=== PATIENT | male | born 1935 | race Caucasian/White ===

== ENCOUNTER 2023-06-13 15:32 | Emergency (ER) | payer MEDICARE ==
[2023-06-13 15:45] VITALS: PULSE 57
[2023-06-13 16:03] LABS: BASOPHILS PERCENT AUTO 0.4 % (0.3-3.8); EOSINOPHILS ABSOLUTE AUTO 0.1 x10-3/uL (0.0-0.6); EOSINOPHILS PERCENT AUTO 0.8 % (0.1-6.8); HEMATOCRIT 30.4 % (38.3-50.1); HEMOGLOBIN 10.2 g/dL (12.9-17.7); LYMPHOCYTES ABSOLUTE AUTO 1.5 x10-3/uL (0.5-4.5); LYMPHOCYTES PERCENT AUTO 14.7 % (15.8-45.3); MEAN CORPUSCULAR HEMOGLOBIN 34.6 pg (27.0-33.3); MEAN CORPUSCULAR HGB CONC 33.5 g/dL (28.7-35.3); MEAN CORPUSCULAR VOLUME 103.3 fL (80.8-98.7); MEAN PLATELET VOLUME 9.1 fL (6.7-11.0); MONOCYTES ABSOLUTE AUTO 0.9 x10-3/uL (0.0-1.2); NEUTROPHILS ABSOLUTE AUTO 7.8 x10-3/uL (1.7-6.9); NEUTROPHILS PERCENT AUTO 75.1 % (40.3-71.8); PLATELET COUNT,PLT 197 x10(3)uL (117-477); WHITE BLOOD CELL COUNT,WBC 10.3 x10-3/uL (3.2-10.1)
[2023-06-13 16:06] LABS: BLOOD UREA NITROGEN,BUN 52 mg/dL (7-18); BUN/CREATININE RATIO 34.7 (9-20); CALCIUM 9.3 mg/dL (8.6-10.2); CARBON DIOXIDE,CO2 26 mmol/L (21-32); CHLORIDE,CL 106 mmol/L (100-110); CREATININE 1.5 mg/dL (0.70-1.30); ESTIMATED GFR 45 mL/min (>60); GLUCOSE RANDOM 114 mg/dL (80-116); POTASSIUM,K 4.5 mmol/L (3.5-5.3); SODIUM,NA 139 mmol/L (135-145)
[2023-06-13 16:11] LABS: A/G RATIO 1.1; ALANINE AMINOTRANSFERASE,ALT 19 U/L (12-36); ALBUMIN 3.3 g/dL (3.2-4.6); ALKALINE PHOSPHATASE 94 IU/L (56-112); ASPARTATE AMNIOTRANSFERASE,AST 15 IU/L (5-25); BILIRUBIN TOTAL 0.6 mg/dL (0.1-1.3); PROTEIN TOTAL,TP 6.2 g/dL (6.0-8.0)
[2023-06-13 16:13] LABS: RED BLOOD CELL COUNT 2.95 x10(6)uL (3.90-5.90)
[2023-06-13 16:22] LABS: C-REACTIVE PROTEIN < 0.50 mg/dL (<0.50); PRO B-TYPE NATRIUR PEPT,BNPPRO 1907 pg/mL (<=450)
[2023-06-13 17:13] LABS: BILIRUBIN,URINE NEGATIVE (NEGATIVE); GLUCOSE,URINE NORMAL (NORMAL); KETONES,URINE NEGATIVE (NEGATIVE); LEUKOCYTE ESTERASE,URINE LARGE (NEGATIVE); NITRITE,URINE NEGATIVE (NEGATIVE); OCCULT BLOOD,URINE LARGE (NEGATIVE); PROTEIN,URINE 30 mg/dL (NEGATIVE); UROBILINOGEN,URINE NORMAL (NEGATIVE)
[2023-06-13 17:14] LABS: APPEARANCE,URINE CLOUDY (CLEAR); COLOR,URINE YELLOW (YELLOW); RBC,URINE PACKED (0-5); WBC,URINE PACKED (0-5)
[2023-06-13 17:18] VITALS: BP 86/40
[2023-06-13] MEDS: Sodium Chloride 0.9% 1,000 ML IV ONE ×2 (18:05→18:41)
[2023-06-13] MEDS: cefTRIAXone 1 GM in Sodium Chloride 0.9% 50 ML IV ONE (18:16)
== END 2023-06-13 19:17 ==
LOC: FB.ED 15:32
DX: S20.212A Contusion of left front wall of thorax, initial encounter (principal); S40.022A Contusion of left upper arm, initial encounter; S80.212A Abrasion, left knee, initial encounter; I95.9 Hypotension, unspecified; N39.0 Urinary tract infection, site not specified; I48.20 Chronic atrial fibrillation, unspecified; R60.0 Localized edema; N17.8 Other acute kidney failure; D53.9 Nutritional anemia, unspecified; I13.0 Hypertensive heart and chronic kidney disease with heart failure and stage 1 through stage 4 chronic kidney disease, or unspecified chronic kidney disease; I50.30 Unspecified diastolic (congestive) heart failure; N18.30 Chronic kidney disease, stage 3 unspecified; E11.22 Type 2 diabetes mellitus with diabetic chronic kidney disease; K21.9 Gastro-esophageal reflux disease without esophagitis; Z79.01 Long term (current) use of anticoagulants; Z79.899 Other long term (current) drug therapy; W10.9XXA Fall (on) (from) unspecified stairs and steps, initial encounter
CPT/HCPCS: 71101-LT; 80053; 81001; 83880; 84484; 85025; 86140; 87086; 87088; 87186; 93010; 96361; 96374; 99285; 99285-25; J0696; J3490; J7030

== ENCOUNTER 2023-06-19 12:10 | Inpatient (IN) | payer MEDICARE ==
[2023-06-19 13:20] LABS: HEMATOCRIT 29.1 % (38.3-50.1); HEMOGLOBIN 9.8 g/dL (12.9-17.7); MEAN CORPUSCULAR HEMOGLOBIN 34.2 pg (27.0-33.3); MEAN CORPUSCULAR HGB CONC 33.6 g/dL (28.7-35.3); MEAN PLATELET VOLUME 7.7 fL (6.7-11.0); PLATELET COUNT,PLT 233 x10(3)uL (117-477); RED BLOOD CELL COUNT 2.85 x10(6)uL (3.90-5.90); RED CELL DISTRIBUTION WIDTH 16.2 % (12.4-15.0); WHITE BLOOD CELL COUNT,WBC 15.1 x10-3/uL (3.2-10.1)
[2023-06-19 13:24] LABS: BLOOD UREA NITROGEN,BUN 20 mg/dL (7-18); CALCIUM 9.3 mg/dL (8.6-10.2); CARBON DIOXIDE,CO2 27 mmol/L (21-32); CHLORIDE,CL 101 mmol/L (100-110); ESTIMATED GFR 73 mL/min (>60); GLUCOSE RANDOM 123 mg/dL (80-116); POTASSIUM,K 4.3 mmol/L (3.5-5.3); SODIUM,NA 136 mmol/L (135-145)
[2023-06-19 13:30] LABS: A/G RATIO 0.9; ALANINE AMINOTRANSFERASE,ALT 12 U/L (12-36); ALBUMIN 2.8 g/dL (3.2-4.6); ALKALINE PHOSPHATASE 81 IU/L (56-112); ASPARTATE AMNIOTRANSFERASE,AST 9 IU/L (5-25); BILIRUBIN TOTAL 1.1 mg/dL (0.1-1.3); PROTEIN TOTAL,TP 6.1 g/dL (6.0-8.0)
[2023-06-19 13:33] LABS: LYMPHOCYTES PERCENT MAN 6 % (13-37); MONOCYTES PERCENT MAN 10 % (4-12); SEG NEUTROPHILS PERCENT MAN 84 % (46-82)
[2023-06-19] MEDS: Sodium Chloride 0.9% 1,000 ML IV SCH (13:46)
[2023-06-19] MEDS: VANCOmycin 2 GM/400 ML 2 GM in Premix Bag 1 BAG IV ONE (14:50)
[2023-06-19] MEDS: Acetaminophen 500 MG Tab PO ONE (15:00)
[2023-06-19] MEDS: Morphine 2 MG/ML SYRINGE IVPUSH ONE (15:00)
[2023-06-19] MEDS: cefTRIAXone 1 GM Vial IVPUSH SCH (15:46)
[2023-06-19] MEDS ORDERED: Ondansetron 4 MG Tab.DIS PO PRN (16:14)
[2023-06-19 16:23] LABS: BILIRUBIN,URINE NEGATIVE (NEGATIVE); GLUCOSE,URINE NORMAL (NORMAL); KETONES,URINE 15 mg/dL (NEGATIVE); LEUKOCYTE ESTERASE,URINE MODERATE (NEGATIVE); NITRITE,URINE NEGATIVE (NEGATIVE); OCCULT BLOOD,URINE NEGATIVE (NEGATIVE); PROTEIN,URINE NEGATIVE (NEGATIVE); UROBILINOGEN,URINE NORMAL (NEGATIVE)
[2023-06-19 16:28] LABS: APPEARANCE,URINE SLIGHTLY CLOUDY (CLEAR); BACTERIA,URINE FEW (NS); COLOR,URINE YELLOW (YELLOW); SQUAMOUS EPITHELIAL CELLS,UR OCCASIONAL (NS,R,O)
[2023-06-19] MEDS: Potassium Chloride 20 MEQ Tab.ER PO SCH (18:51)
[2023-06-19] MEDS: Apixaban 5 MG Tab PO SCH (20:09)
[2023-06-19] MEDS: Simvastatin 20 MG Tab PO SCH (20:09)
[2023-06-19] MEDS: Acetaminophen 325 MG Tab PO PRN (20:12)
[2023-06-19] MEDS ORDERED: Gabapentin 100 MG Cap PO SCH (21:00)
[2023-06-20 06:31] LABS: HEMATOCRIT 26.5 % (38.3-50.1); HEMOGLOBIN 8.8 g/dL (12.9-17.7); MEAN CORPUSCULAR HEMOGLOBIN 33.8 pg (27.0-33.3); MEAN CORPUSCULAR HGB CONC 33.2 g/dL (28.7-35.3); MEAN CORPUSCULAR VOLUME 101.8 fL (80.8-98.7); MEAN PLATELET VOLUME 7.9 fL (6.7-11.0); PLATELET COUNT,PLT 222 x10(3)uL (117-477); RED BLOOD CELL COUNT 2.61 x10(6)uL (3.90-5.90); WHITE BLOOD CELL COUNT,WBC 14.3 x10-3/uL (3.2-10.1)
[2023-06-20 06:42] LABS: A/G RATIO 0.7; ALANINE AMINOTRANSFERASE,ALT 11 U/L (12-36); ALBUMIN 2.3 g/dL (3.2-4.6); ALKALINE PHOSPHATASE 76 IU/L (56-112); ASPARTATE AMNIOTRANSFERASE,AST 10 IU/L (5-25); BILIRUBIN TOTAL 0.8 mg/dL (0.1-1.3); BLOOD UREA NITROGEN,BUN 21 mg/dL (7-18); CALCIUM 8.7 mg/dL (8.6-10.2); CARBON DIOXIDE,CO2 25 mmol/L (21-32); CHLORIDE,CL 103 mmol/L (100-110); EST CRCL DRUG DOSING (CG) 48.66 mL/min; ESTIMATED GFR 73 mL/min (>60); GLUCOSE RANDOM 124 mg/dL (80-116); POTASSIUM,K 4.2 mmol/L (3.5-5.3); PROTEIN TOTAL,TP 5.5 g/dL (6.0-8.0); SODIUM,NA 136 mmol/L (135-145)
[2023-06-20 06:53] LABS: EOSINOPHILS PERCENT MAN 1 % (0-5); LYMPHOCYTES PERCENT MAN 8 % (13-37); MONOCYTES PERCENT MAN 7 % (4-12); SEG NEUTROPHILS PERCENT MAN 84 % (46-82)
[2023-06-20 06:55] LABS: ANISOCYTOSIS FEW
[2023-06-20 06:56] LABS: HYPERSEGMENTED NEUTROPHILS FEW
[2023-06-20] MEDS: Furosemide 20 MG Tab PO SCH (08:47)
[2023-06-20] MEDS: Allopurinol 300 MG Tab PO SCH (08:47)
[2023-06-20] MEDS ORDERED: Tamsulosin 0.4 MG Cap.ER PO SCH (09:00)
[2023-06-20] MEDS ORDERED: Metoprolol Succinate 50 MG Tab.ER PO SCH (09:00)
[2023-06-20] MEDS: Metoprolol Succinate 25 MG Tab.ER PO SCH (10:17)
[2023-06-20] MEDS: Finasteride 5 MG Tab PO SCH (10:17)
[2023-06-20] MEDS: Tamsulosin 0.4 MG Cap.ER PO SCH (10:17)
[2023-06-20] MEDS: VANCOmycin 1.5 GM/300 ML 1.5 GM in Premix Bag 1 BAG IV SCH (16:03)
[2023-06-21 06:38] LABS: BASOPHILS ABSOLUTE AUTO 0.1 x10-3/uL (0.0-0.3); BASOPHILS PERCENT AUTO 0.8 % (0.3-3.8); EOSINOPHILS ABSOLUTE AUTO 0.1 x10-3/uL (0.0-0.6); EOSINOPHILS PERCENT AUTO 0.7 % (0.1-6.8); HEMATOCRIT 25.6 % (38.3-50.1); HEMOGLOBIN 8.8 g/dL (12.9-17.7); LYMPHOCYTES ABSOLUTE AUTO 1.1 x10-3/uL (0.5-4.5); LYMPHOCYTES PERCENT AUTO 7.4 % (15.8-45.3); MEAN CORPUSCULAR HEMOGLOBIN 34.9 pg (27.0-33.3); MEAN CORPUSCULAR HGB CONC 34.3 g/dL (28.7-35.3); MEAN CORPUSCULAR VOLUME 101.8 fL (80.8-98.7); MEAN PLATELET VOLUME 7.9 fL (6.7-11.0); MONOCYTES PERCENT AUTO 6.6 % (5.5-15.2); NEUTROPHILS ABSOLUTE AUTO 12.2 x10-3/uL (1.7-6.9); NEUTROPHILS PERCENT AUTO 84.5 % (40.3-71.8); PLATELET COUNT,PLT 229 x10(3)uL (117-477); RED BLOOD CELL COUNT 2.52 x10(6)uL (3.90-5.90); RED CELL DISTRIBUTION WIDTH 15.8 % (12.4-15.0); WHITE BLOOD CELL COUNT,WBC 14.4 x10-3/uL (3.2-10.1)
[2023-06-21 06:58] LABS: A/G RATIO 0.7; ALANINE AMINOTRANSFERASE,ALT 18 U/L (12-36); ALBUMIN 2.2 g/dL (3.2-4.6); ALKALINE PHOSPHATASE 85 IU/L (56-112); ASPARTATE AMNIOTRANSFERASE,AST 16 IU/L (5-25); BILIRUBIN TOTAL 0.7 mg/dL (0.1-1.3); BLOOD UREA NITROGEN,BUN 21 mg/dL (7-18); CALCIUM 8.8 mg/dL (8.6-10.2); CARBON DIOXIDE,CO2 23 mmol/L (21-32); CHLORIDE,CL 101 mmol/L (100-110); EST CRCL DRUG DOSING (CG) 48.66 mL/min; ESTIMATED GFR 73 mL/min (>60); GLUCOSE RANDOM 108 mg/dL (80-116); PROTEIN TOTAL,TP 5.5 g/dL (6.0-8.0); SODIUM,NA 131 mmol/L (135-145)
[2023-06-21] MEDS ORDERED: Metolazone 5 MG Tab PO SCH (09:00)
[2023-06-21] MEDS: Polyethylene Glycol 3350 Powder 17 GM Packet PO PRN (10:47)
[2023-06-22] MEDS: LORazepam 2 MG/ML SDV IVPUSH ONE (00:07)
[2023-06-22] MEDS: OLANZapine 10 MG Vial IM ONE (00:24)
[2023-06-22 06:41] LABS: BASOPHILS PERCENT AUTO 0.3 % (0.3-3.8); EOSINOPHILS ABSOLUTE AUTO 0.1 x10-3/uL (0.0-0.6); EOSINOPHILS PERCENT AUTO 0.9 % (0.1-6.8); HEMATOCRIT 26.2 % (38.3-50.1); LYMPHOCYTES PERCENT AUTO 8.7 % (15.8-45.3); MEAN CORPUSCULAR HEMOGLOBIN 34.3 pg (27.0-33.3); MEAN CORPUSCULAR HGB CONC 34.1 g/dL (28.7-35.3); MEAN CORPUSCULAR VOLUME 100.7 fL (80.8-98.7); MEAN PLATELET VOLUME 7.7 fL (6.7-11.0); MONOCYTES ABSOLUTE AUTO 0.9 x10-3/uL (0.0-1.2); MONOCYTES PERCENT AUTO 7.8 % (5.5-15.2); NEUTROPHILS ABSOLUTE AUTO 9.5 x10-3/uL (1.7-6.9); NEUTROPHILS PERCENT AUTO 82.3 % (40.3-71.8); PLATELET COUNT,PLT 282 x10(3)uL (117-477); RED BLOOD CELL COUNT 2.61 x10(6)uL (3.90-5.90); RED CELL DISTRIBUTION WIDTH 15.7 % (12.4-15.0); WHITE BLOOD CELL COUNT,WBC 11.6 x10-3/uL (3.2-10.1)
[2023-06-22 06:49] LABS: A/G RATIO 0.7; ALANINE AMINOTRANSFERASE,ALT 21 U/L (12-36); ALBUMIN 2.3 g/dL (3.2-4.6); ALKALINE PHOSPHATASE 94 IU/L (56-112); ASPARTATE AMNIOTRANSFERASE,AST 16 IU/L (5-25); BILIRUBIN TOTAL 0.8 mg/dL (0.1-1.3); BLOOD UREA NITROGEN,BUN 19 mg/dL (7-18); BUN/CREATININE RATIO 21.1 (9-20); CALCIUM 9.2 mg/dL (8.6-10.2); CARBON DIOXIDE,CO2 27 mmol/L (21-32); CHLORIDE,CL 101 mmol/L (100-110); CREATININE 0.9 mg/dL (0.70-1.30); EST CRCL DRUG DOSING (CG) 54.06 mL/min; ESTIMATED GFR 83 mL/min (>60); GLUCOSE RANDOM 116 mg/dL (80-116); POTASSIUM,K 4.3 mmol/L (3.5-5.3); PROTEIN TOTAL,TP 5.8 g/dL (6.0-8.0); SODIUM,NA 136 mmol/L (135-145)
[2023-06-22 07:02] LABS: C-REACTIVE PROTEIN 22.42 mg/dL (<0.50)
[2023-06-22] MEDS ORDERED: Haloperidol Lactate 5 MG/ML SDV IM PRN (09:42)
[2023-06-22 11:02] LABS: BASE EXCESS ARTERIAL,POC -1 mmol/L (-2 - 3+); HCO3 ARTERIAL,POC 22 mmol/L (21-28); PO2 ARTERIAL,POC 84 mmHg (83-108)
[2023-06-22] MEDS: Acetaminophen/HYDROcodone 325-5 MG Tab PO PRN (16:05)
[2023-06-22] MEDS: Melatonin 3 MG Tab PO SCH (21:02)
[2023-06-23 07:01] LABS: BASOPHILS ABSOLUTE AUTO 0.1 x10-3/uL (0.0-0.3); BASOPHILS PERCENT AUTO 0.5 % (0.3-3.8); EOSINOPHILS ABSOLUTE AUTO 0.2 x10-3/uL (0.0-0.6); EOSINOPHILS PERCENT AUTO 1.9 % (0.1-6.8); HEMATOCRIT 25.6 % (38.3-50.1); HEMOGLOBIN 8.7 g/dL (12.9-17.7); LYMPHOCYTES ABSOLUTE AUTO 1.1 x10-3/uL (0.5-4.5); MEAN CORPUSCULAR HEMOGLOBIN 34.3 pg (27.0-33.3); MEAN CORPUSCULAR HGB CONC 34.2 g/dL (28.7-35.3); MEAN CORPUSCULAR VOLUME 100.5 fL (80.8-98.7); MEAN PLATELET VOLUME 7.1 fL (6.7-11.0); MONOCYTES ABSOLUTE AUTO 0.8 x10-3/uL (0.0-1.2); MONOCYTES PERCENT AUTO 7.6 % (5.5-15.2); NEUTROPHILS ABSOLUTE AUTO 7.9 x10-3/uL (1.7-6.9); PLATELET COUNT,PLT 276 x10(3)uL (117-477); RED BLOOD CELL COUNT 2.54 x10(6)uL (3.90-5.90); RED CELL DISTRIBUTION WIDTH 15.9 % (12.4-15.0)
[2023-06-23 07:05] LABS: A/G RATIO 0.6; ALANINE AMINOTRANSFERASE,ALT 22 U/L (12-36); ALBUMIN 2.1 g/dL (3.2-4.6); ALKALINE PHOSPHATASE 96 IU/L (56-112); ASPARTATE AMNIOTRANSFERASE,AST 20 IU/L (5-25); BILIRUBIN TOTAL 0.8 mg/dL (0.1-1.3); BLOOD UREA NITROGEN,BUN 22 mg/dL (7-18); BUN/CREATININE RATIO 24.4 (9-20); CALCIUM 8.9 mg/dL (8.6-10.2); CARBON DIOXIDE,CO2 25 mmol/L (21-32); CHLORIDE,CL 104 mmol/L (100-110); CREATININE 0.9 mg/dL (0.70-1.30); EST CRCL DRUG DOSING (CG) 54.06 mL/min; ESTIMATED GFR 83 mL/min (>60); GLUCOSE RANDOM 117 mg/dL (80-116); POTASSIUM,K 4.5 mmol/L (3.5-5.3); PROTEIN TOTAL,TP 5.4 g/dL (6.0-8.0); SODIUM,NA 137 mmol/L (135-145)
[2023-06-23 07:18] LABS: C-REACTIVE PROTEIN 16.76 mg/dL (<0.50)
[2023-06-23] MEDS: Metolazone 2.5 MG Tab PO ONE (10:04)
[2023-06-23] MEDS: Melatonin 3 MG Tab PO SCH (20:14)
[2023-06-23] MEDS: Acetaminophen 325 MG Tab PO SCH (20:15)
[2023-06-24 06:31] LABS: BASOPHILS ABSOLUTE AUTO 0.1 x10-3/uL (0.0-0.3); BASOPHILS PERCENT AUTO 1.3 % (0.3-3.8); EOSINOPHILS ABSOLUTE AUTO 0.2 x10-3/uL (0.0-0.6); HEMOGLOBIN 8.8 g/dL (12.9-17.7); LYMPHOCYTES ABSOLUTE AUTO 1.2 x10-3/uL (0.5-4.5); LYMPHOCYTES PERCENT AUTO 11.7 % (15.8-45.3); MEAN CORPUSCULAR HEMOGLOBIN 34.2 pg (27.0-33.3); MEAN CORPUSCULAR HGB CONC 33.9 g/dL (28.7-35.3); MEAN PLATELET VOLUME 7.1 fL (6.7-11.0); MONOCYTES ABSOLUTE AUTO 0.7 x10-3/uL (0.0-1.2); MONOCYTES PERCENT AUTO 6.9 % (5.5-15.2); NEUTROPHILS ABSOLUTE AUTO 8.1 x10-3/uL (1.7-6.9); NEUTROPHILS PERCENT AUTO 78.1 % (40.3-71.8); PLATELET COUNT,PLT 307 x10(3)uL (117-477); RED BLOOD CELL COUNT 2.57 x10(6)uL (3.90-5.90); WHITE BLOOD CELL COUNT,WBC 10.4 x10-3/uL (3.2-10.1)
[2023-06-24 06:40] LABS: A/G RATIO 0.6; ALANINE AMINOTRANSFERASE,ALT 21 U/L (12-36); ALKALINE PHOSPHATASE 101 IU/L (56-112); ASPARTATE AMNIOTRANSFERASE,AST 14 IU/L (5-25); BILIRUBIN TOTAL 0.4 mg/dL (0.1-1.3); BLOOD UREA NITROGEN,BUN 23 mg/dL (7-18); BUN/CREATININE RATIO 25.6 (9-20); CALCIUM 9.1 mg/dL (8.6-10.2); CARBON DIOXIDE,CO2 26 mmol/L (21-32); CHLORIDE,CL 102 mmol/L (100-110); CREATININE 0.9 mg/dL (0.70-1.30); EST CRCL DRUG DOSING (CG) 54.06 mL/min; ESTIMATED GFR 83 mL/min (>60); GLUCOSE RANDOM 116 mg/dL (80-116); POTASSIUM,K 4.1 mmol/L (3.5-5.3); PROTEIN TOTAL,TP 5.3 g/dL (6.0-8.0); SODIUM,NA 136 mmol/L (135-145)
[2023-06-24 06:47] LABS: C-REACTIVE PROTEIN 11.56 mg/dL (<0.50)
[2023-06-24] MEDS ORDERED: Sennosides/Docusate Sodium 50-8.6 MG Tab PO PRN (09:18)
[2023-06-24] MEDS: Bisacodyl 10 MG Supp RECTAL SCH (10:12)
[2023-06-24] MEDS: Magnesium Hydroxide 400 MG/5 ML Susp 30 ML Cup PO ONE (10:12)
[2023-06-25 06:36] LABS: BASOPHILS ABSOLUTE AUTO 0.1 x10-3/uL (0.0-0.3); BASOPHILS PERCENT AUTO 0.6 % (0.3-3.8); EOSINOPHILS ABSOLUTE AUTO 0.2 x10-3/uL (0.0-0.6); EOSINOPHILS PERCENT AUTO 1.9 % (0.1-6.8); HEMATOCRIT 26.9 % (38.3-50.1); LYMPHOCYTES ABSOLUTE AUTO 0.8 x10-3/uL (0.5-4.5); LYMPHOCYTES PERCENT AUTO 7.5 % (15.8-45.3); MEAN CORPUSCULAR HEMOGLOBIN 33.8 pg (27.0-33.3); MEAN CORPUSCULAR HGB CONC 33.5 g/dL (28.7-35.3); MEAN CORPUSCULAR VOLUME 100.9 fL (80.8-98.7); MEAN PLATELET VOLUME 6.8 fL (6.7-11.0); MONOCYTES ABSOLUTE AUTO 0.8 x10-3/uL (0.0-1.2); MONOCYTES PERCENT AUTO 7.6 % (5.5-15.2); NEUTROPHILS ABSOLUTE AUTO 8.8 x10-3/uL (1.7-6.9); NEUTROPHILS PERCENT AUTO 82.4 % (40.3-71.8); PLATELET COUNT,PLT 333 x10(3)uL (117-477); RED BLOOD CELL COUNT 2.67 x10(6)uL (3.90-5.90); RED CELL DISTRIBUTION WIDTH 15.8 % (12.4-15.0); WHITE BLOOD CELL COUNT,WBC 10.7 x10-3/uL (3.2-10.1)
[2023-06-25 06:44] LABS: A/G RATIO 0.7; ALANINE AMINOTRANSFERASE,ALT 22 U/L (12-36); ALBUMIN 2.2 g/dL (3.2-4.6); ALKALINE PHOSPHATASE 105 IU/L (56-112); ASPARTATE AMNIOTRANSFERASE,AST 17 IU/L (5-25); BILIRUBIN TOTAL 0.5 mg/dL (0.1-1.3); BLOOD UREA NITROGEN,BUN 21 mg/dL (7-18); BUN/CREATININE RATIO 23.3 (9-20); CALCIUM 9.2 mg/dL (8.6-10.2); CARBON DIOXIDE,CO2 28 mmol/L (21-32); CHLORIDE,CL 100 mmol/L (100-110); CREATININE 0.9 mg/dL (0.70-1.30); EST CRCL DRUG DOSING (CG) 54.06 mL/min; ESTIMATED GFR 83 mL/min (>60); GLUCOSE RANDOM 122 mg/dL (80-116); POTASSIUM,K 4.1 mmol/L (3.5-5.3); PROTEIN TOTAL,TP 5.5 g/dL (6.0-8.0); SODIUM,NA 134 mmol/L (135-145)
[2023-06-25] MEDS: Sodium Chloride 0.9% 10 ML Syringe FLUSH PRN (08:54)
[2023-06-25] MEDS: predniSONE 20 MG Tab PO SCH (10:19)
[2023-06-25] MEDS: Doxycycline 100 MG Tab PO SCH (10:19)
[2023-06-26 06:25] LABS: MEAN CORPUSCULAR HEMOGLOBIN 33.6 pg (27.0-33.3); MEAN CORPUSCULAR HGB CONC 33.4 g/dL (28.7-35.3); MEAN CORPUSCULAR VOLUME 100.7 fL (80.8-98.7); MEAN PLATELET VOLUME 7.2 fL (6.7-11.0); PLATELET COUNT,PLT 394 x10(3)uL (117-477); RED BLOOD CELL COUNT 2.98 x10(6)uL (3.90-5.90); RED CELL DISTRIBUTION WIDTH 15.8 % (12.4-15.0); WHITE BLOOD CELL COUNT,WBC 11.8 x10-3/uL (3.2-10.1)
[2023-06-26 06:35] LABS: BLOOD UREA NITROGEN,BUN 25 mg/dL (7-18); BUN/CREATININE RATIO 27.8 (9-20); CALCIUM 9.4 mg/dL (8.6-10.2); CARBON DIOXIDE,CO2 29 mmol/L (21-32); CHLORIDE,CL 101 mmol/L (100-110); CREATININE 0.9 mg/dL (0.70-1.30); EST CRCL DRUG DOSING (CG) 54.06 mL/min; ESTIMATED GFR 83 mL/min (>60); GLUCOSE RANDOM 169 mg/dL (80-116); POTASSIUM,K 4.8 mmol/L (3.5-5.3); SODIUM,NA 136 mmol/L (135-145)
[2023-06-26 06:47] LABS: HYPERSEGMENTED NEUTROPHILS MODERATE; LYMPHOCYTES PERCENT MAN 9 % (13-37); MONOCYTES PERCENT MAN 4 % (4-12); SEG NEUTROPHILS PERCENT MAN 87 % (46-82)
[2023-06-26 08:41] VITALS: BP 103/57; PULSE 89
== END 2023-06-26 09:00 | disposition swing bed (61) | DRG 557 ==
LOC: FB.ED 12:10 → FB.MS 14:57
PROVIDERS: ADMIT Family Medicine; ATTEND Family Medicine
PROC: 0R9L3ZZ Drainage of Right Elbow Joint, Percutaneous Approach (ICD-10-PCS; principal; 2023-06-19)
PROC: 4A033R1 Measurement of Arterial Saturation, Peripheral, Percutaneous Approach (ICD-10-PCS; 2023-06-22)
DX: M71.121 Other infective bursitis, right elbow (principal); I50.33 Acute on chronic diastolic (congestive) heart failure; I48.91 Unspecified atrial fibrillation; L03.113 Cellulitis of right upper limb; D72.829 Elevated white blood cell count, unspecified; R79.82 Elevated C-reactive protein (CRP); R79.89 Other specified abnormal findings of blood chemistry; D50.9 Iron deficiency anemia, unspecified; Z96.0 Presence of urogenital implants; I13.0 Hypertensive heart and chronic kidney disease with heart failure and stage 1 through stage 4 chronic kidney disease, or unspecified chronic kidney disease; I10 Essential (primary) hypertension; J44.9 Chronic obstructive pulmonary disease, unspecified; E78.5 Hyperlipidemia, unspecified; K21.9 Gastro-esophageal reflux disease without esophagitis; M19.90 Unspecified osteoarthritis, unspecified site; Z96.653 Presence of artificial knee joint, bilateral; E88.09 Other disorders of plasma-protein metabolism, not elsewhere classified; R39.2 Extrarenal uremia; D53.9 Nutritional anemia, unspecified; S40.021D Contusion of right upper arm, subsequent encounter; I48.0 Paroxysmal atrial fibrillation; R29.6 Repeated falls; N18.2 Chronic kidney disease, stage 2 (mild); E66.09 Other obesity due to excess calories; R41.0 Disorientation, unspecified; K59.01 Slow transit constipation; Z79.01 Long term (current) use of anticoagulants; Z79.84 Long term (current) use of oral hypoglycemic drugs; Z79.899 Other long term (current) drug therapy; Z98.890 Other specified postprocedural states; Z97.8 Presence of other specified devices; Z87.01 Personal history of pneumonia (recurrent); Z98.49 Cataract extraction status, unspecified eye; Z68.34 Body mass index [BMI] 34.0-34.9, adult; W19.XXXD Unspecified fall, subsequent encounter
CPT/HCPCS: 36415; 73200; 80053; 83605; 84484; 85025; 86140; 87040 ×2; 87086; 93005; 93010; 96360; 99285 ×2; J3370; J7030; 70450; 71045; 80048; 80202; 81001; 82607; 82803; 83735; 83880; 84443; 84550; 85651; 87070; 87075; 87205; 94150; 97110-GO; 97161-GP; 97165-GO; 97530-GP; 99222; 99232; 99239; A9270-GY; J0696; J2060; J2270; J2405; J3490; J7512

== ENCOUNTER 2023-06-26 09:00 | Inpatient (IN) | payer MEDICARE ==
[2023-06-26] MEDS ORDERED: Polyethylene Glycol 3350 Powder 17 GM Packet PO PRN (10:09)
[2023-06-26] MEDS ORDERED: Sennosides/Docusate Sodium 50-8.6 MG Tab PO PRN (10:09)
[2023-06-26] MEDS: Metolazone 2.5 MG Tab PO ONE (10:35)
[2023-06-26] MEDS: Amoxicillin/Clavulanate K 875-125 MG Tab PO SCH (10:35)
[2023-06-26] MEDS: Potassium Chloride 20 MEQ Tab.ER PO SCH (18:14)
[2023-06-26] MEDS: predniSONE 20 MG Tab PO SCH (18:52)
[2023-06-26] MEDS: Melatonin 3 MG Tab PO SCH (20:06)
[2023-06-26] MEDS: Acetaminophen 325 MG Tab PO SCH (20:06)
[2023-06-26] MEDS: Magnesium Oxide 400 MG Tab PO SCH (20:06)
[2023-06-26] MEDS: Apixaban 5 MG Tab PO SCH (20:06)
[2023-06-27] MEDS: Bisacodyl 10 MG Supp RECTAL SCH (08:08)
[2023-06-27] MEDS: Tamsulosin 0.4 MG Cap.ER PO SCH (08:09)
[2023-06-27] MEDS: Folic Acid 1 MG Tab PO SCH (08:10)
[2023-06-27] MEDS: Finasteride 5 MG Tab PO SCH (08:12)
[2023-06-27] MEDS: Cyanocobalamin (Vitamin B12) 1,000 MCG Tab PO SCH (08:12)
[2023-06-27] MEDS: Allopurinol 300 MG Tab PO SCH (08:13)
[2023-06-27] MEDS: Furosemide 20 MG Tab PO SCH (08:22)
[2023-06-29] MEDS ORDERED: Bisacodyl 10 MG Supp RECTAL PRN (13:07)
[2023-07-01 06:40] LABS: HEMATOCRIT 29.1 % (38.3-50.1); HEMOGLOBIN 9.6 g/dL (12.9-17.7); MEAN CORPUSCULAR HEMOGLOBIN 33.2 pg (27.0-33.3); MEAN CORPUSCULAR HGB CONC 33.1 g/dL (28.7-35.3); MEAN CORPUSCULAR VOLUME 100.4 fL (80.8-98.7); MEAN PLATELET VOLUME 7.2 fL (6.7-11.0); PLATELET COUNT,PLT 438 x10(3)uL (117-477); RED CELL DISTRIBUTION WIDTH 16.3 % (12.4-15.0); WHITE BLOOD CELL COUNT,WBC 12.5 x10-3/uL (3.2-10.1)
[2023-07-01 06:48] LABS: BLOOD UREA NITROGEN,BUN 34 mg/dL (7-18); CALCIUM 8.9 mg/dL (8.6-10.2); CARBON DIOXIDE,CO2 29 mmol/L (21-32); CHLORIDE,CL 101 mmol/L (100-110); EST CRCL DRUG DOSING (CG) 48.66 mL/min; ESTIMATED GFR 73 mL/min (>60); GLUCOSE RANDOM 115 mg/dL (80-116); POTASSIUM,K 4.6 mmol/L (3.5-5.3); SODIUM,NA 135 mmol/L (135-145)
[2023-07-01 06:59] LABS: BAND PERCENT MAN 1 % (0-6); EOSINOPHILS PERCENT MAN 3 % (0-5); LYMPHOCYTES PERCENT MAN 15 % (13-37); MONOCYTES PERCENT MAN 8 % (4-12); SEG NEUTROPHILS PERCENT MAN 73 % (46-82)
[2023-07-01 07:03] LABS: ANISOCYTOSIS FEW; HYPERSEGMENTED NEUTROPHILS MODERATE; OVALOCYTES FEW
[2023-07-01] MEDS ORDERED: Sodium Chloride 0.9% 1,000 ML IV SCH (17:15)
[2023-07-02 06:42] LABS: HEMOGLOBIN 9.8 g/dL (12.9-17.7); MEAN CORPUSCULAR HEMOGLOBIN 33.8 pg (27.0-33.3); MEAN CORPUSCULAR HGB CONC 33.7 g/dL (28.7-35.3); MEAN CORPUSCULAR VOLUME 100.5 fL (80.8-98.7); PLATELET COUNT,PLT 408 x10(3)uL (117-477); RED BLOOD CELL COUNT 2.89 x10(6)uL (3.90-5.90); RED CELL DISTRIBUTION WIDTH 16.5 % (12.4-15.0); WHITE BLOOD CELL COUNT,WBC 10.8 x10-3/uL (3.2-10.1)
[2023-07-02 07:04] LABS: EOSINOPHILS PERCENT MAN 2 % (0-5); LYMPHOCYTES PERCENT MAN 20 % (13-37); MONOCYTES PERCENT MAN 4 % (4-12); SEG NEUTROPHILS PERCENT MAN 74 % (46-82)
[2023-07-02 07:05] LABS: ANISOCYTOSIS FEW; HYPERSEGMENTED NEUTROPHILS FEW
[2023-07-02 07:06] LABS: OVALOCYTES FEW
[2023-07-03 10:58] VITALS: BP 102/36; PULSE 86
== END 2023-07-03 12:25 | disposition home or self-care (01) | DRG 947 ==
LOC: FB.MS 09:00
PROVIDERS: ADMIT Family Medicine; ATTEND Internal Medicine
DX: R53.1 Weakness (principal); I50.33 Acute on chronic diastolic (congestive) heart failure; I13.0 Hypertensive heart and chronic kidney disease with heart failure and stage 1 through stage 4 chronic kidney disease, or unspecified chronic kidney disease; L03.113 Cellulitis of right upper limb; I48.91 Unspecified atrial fibrillation; J44.9 Chronic obstructive pulmonary disease, unspecified; N18.9 Chronic kidney disease, unspecified; Z66 Do not resuscitate; M19.90 Unspecified osteoarthritis, unspecified site; Z96.659 Presence of unspecified artificial knee joint; R41.0 Disorientation, unspecified; R26.2 Difficulty in walking, not elsewhere classified; I48.0 Paroxysmal atrial fibrillation; K59.01 Slow transit constipation; E66.09 Other obesity due to excess calories; M1A.2 Drug-induced chronic gout; Z79.01 Long term (current) use of anticoagulants; Z87.440 Personal history of urinary (tract) infections; Z79.899 Other long term (current) drug therapy; Z68.34 Body mass index [BMI] 34.0-34.9, adult; Z87.01 Personal history of pneumonia (recurrent); Z87.19 Personal history of other diseases of the digestive system; Z98.49 Cataract extraction status, unspecified eye; Z90.49 Acquired absence of other specified parts of digestive tract; Z97.8 Presence of other specified devices
CPT/HCPCS: 36415; 51702; 80048; 85025; 97110-GO; 97110-GP; 97116-GP; 97530-GO; 97530-GP; 97535-GO; 99305; 99309; 99315; A9270-GY; J7512; U0002

== ENCOUNTER 2024-01-21 14:03 | Emergency (ER) | payer MEDICARE ==
[2024-01-21 14:26] VITALS: BP 132/64; PULSE 87
[2024-01-21 14:33] LABS: BASOPHILS PERCENT AUTO 0.5 % (0.3-3.8); EOSINOPHILS ABSOLUTE AUTO 0.1 x10-3/uL (0.0-0.6); EOSINOPHILS PERCENT AUTO 1.1 % (0.1-6.8); HEMATOCRIT 28.2 % (38.3-50.1); HEMOGLOBIN 9.3 g/dL (12.9-17.7); LYMPHOCYTES ABSOLUTE AUTO 1.2 x10-3/uL (0.5-4.5); LYMPHOCYTES PERCENT AUTO 14.8 % (15.8-45.3); MEAN CORPUSCULAR HEMOGLOBIN 32.6 pg (27.0-33.3); MEAN CORPUSCULAR HGB CONC 33.1 g/dL (28.7-35.3); MEAN CORPUSCULAR VOLUME 98.5 fL (80.8-98.7); MEAN PLATELET VOLUME 7.5 fL (6.7-11.0); MONOCYTES ABSOLUTE AUTO 0.7 x10-3/uL (0.0-1.2); MONOCYTES PERCENT AUTO 8.8 % (5.5-15.2); NEUTROPHILS ABSOLUTE AUTO 6.1 x10-3/uL (1.7-6.9); NEUTROPHILS PERCENT AUTO 74.8 % (40.3-71.8); PLATELET COUNT,PLT 278 x10(3)uL (117-477); RED BLOOD CELL COUNT 2.86 x10(6)uL (3.90-5.90); RED CELL DISTRIBUTION WIDTH 16.8 % (12.4-15.0); WHITE BLOOD CELL COUNT,WBC 8.2 x10-3/uL (3.2-10.1)
[2024-01-21 14:36] LABS: BLOOD UREA NITROGEN,BUN 29 mg/dL (7-18); BUN/CREATININE RATIO 17.1 (9-20); CALCIUM 8.7 mg/dL (8.6-10.2); CARBON DIOXIDE,CO2 29 mmol/L (21-32); CHLORIDE,CL 102 mmol/L (100-110); CREATININE 1.7 mg/dL (0.70-1.30); ESTIMATED GFR 38 mL/min (>60); GLUCOSE RANDOM 121 mg/dL (80-116); POTASSIUM,K 4.4 mmol/L (3.5-5.3); SODIUM,NA 140 mmol/L (135-145)
== END 2024-01-21 15:08 | disposition home or self-care (01) ==
LOC: FB.ED 14:03
DX: S00.01XA Abrasion of scalp, initial encounter (principal); S50.812A Abrasion of left forearm, initial encounter; I10 Essential (primary) hypertension; W19.XXXA Unspecified fall, initial encounter
CPT/HCPCS: 36415; 70450; 80048; 85025; 93005; 99285